=== PATIENT | female | born 1985 | race Caucasian/White ===

== ENCOUNTER 2018-07-25 08:21 | Outpatient (CLI) | payer BC ==
--- NOTE | 2018-07-25 11:05 | Ultrasound Report ---
RIGHT BREAST ULTRASOUND: 07/25/18 08:21:00 CLINICAL: 33 year-old with a right breast lump COMPARISON: None. FINDINGS: Ultrasound of the right breast was performed from 3 o'clock to 5 o'clock which includes the area where she feels a lump. A prominent rib corresponds to what she is feeling.No mass, cyst or shadowing. IMPRESSION: Negative targeted right breast ultrasound. BI-RADS 1 - - Negative RECOMMENDATION: Clinical followup and routine mammographic screening based on ACS guidelines.
== END 2018-07-25 08:22 | disposition home or self-care (01) ==
LOC: US 08:21
PROVIDERS: ATTEND Obstetrics & Gynecology
DX: N63.14 Unspecified lump in the right breast, lower inner quadrant (principal)

== ENCOUNTER 2021-07-23 17:06 | Emergency (ER) | payer MEDICAID, OTHER ==
--- NOTE | 2021-07-23 18:37 | Emergency Department Report ---
ED Neuro Deficit HPI - General Chief Complaint: Neuro Symptoms/Deficit Stated Complaint: L SIDE BODY NUMBNESS Time Seen by Provider: 07/23/21 18:25 Source: patient Mode of arrival: Ambulatory Limitations: No Limitations - History of Present Illness Initial Comments: Chief complaint: Left-sided numbness, fall, headache HPI: Is a 34-year-old female with history of open heart surgery age 18 due to pulmonary stenosis and likely VSD who presents with left-sided numbness for 4 days. Gradual onset. She feels cold high differences between both legs. She denies any weakness in arms or legs. She denies trouble with walking. She denies trouble with speech. She feels that she may be stressed since she is now's student and young mom. She fell in the bathroom. She struck her head on an unknown object in the back pain. No loss conscious. She did not have a headache prior to the fall. She has mild left frontal headache. Of impact. -: Gradual, days(s) (4 days) Location: left face, left arm, left leg, other (Left dorsal) History of same: No Severity: mild Quality: numb Improves With: none Worsens With: none Context: gradual onset Associated Symptoms: other (Fall today headache after trauma) - Related Data Home Medications: Home Medications Medication Instructions Recorded Confirmed Last Taken Ascorbic Acid [Vitamin C] 1,000 mg PO DAILY 12/29/16 12/29/16 Unknown Multivitamin Tab [Multiple Vitamin 1 each PO QDAY 12/29/16 12/29/16 Unknown TAB (Theragran)] Previous Rx's Medication Instructions Recorded Last Taken Type Cyclobenzaprine [Flexeril] 10 mg PO TID PRN #12 tablet 10/18/18 Unknown Rx Ibuprofen [Motrin] 600 mg PO Q8H PRN #12 tablet 10/18/18 Unknown Rx Allergies/Adverse Reactions: Allergies Allergy/AdvReac Type Severity Reaction Status Date / Time No Known Allergies Allergy Verified 12/29/16 04:06 ED Review of Systems ROS: Stated complaint: L SIDE BODY NUMBNESS Other details as noted in HPI Comment: All other systems reviewed and negative Constitutional: denies: chills, fever, malaise Respiratory: denies: cough, shortness of breath Cardiovascular: denies: chest pain Gastrointestinal: denies: abdominal pain, nausea, vomiting Neurological: headache, numbness. denies: paresthesias, confusion, abnormal gait, vertigo ED Past Medical Hx - Past Medical History Previous Medical History?: Yes Hx Congestive Heart Failure: No Hx Diabetes: No Hx Asthma: No Hx COPD: No Hx HIV: No Additional medical history: Pulmonary stenosis - Surgical History Past Surgical History?: Yes Hx Open Heart Surgery: Yes (1998) - Social History Smoking Status: Never Smoker Substance Use Type: Alcohol - Medications Home Medications: Home Medications Medication Instructions Recorded Confirmed Last Taken Type Ascorbic Acid [Vitamin C] 1,000 mg PO DAILY 12/29/16 12/29/16 Unknown History Multivitamin Tab [Multiple Vitamin 1 each PO QDAY 12/29/16 12/29/16 Unknown History TAB (Theragran)] Cyclobenzaprine [Flexeril] 10 mg PO TID PRN #12 tablet 10/18/18 Unknown Rx Ibuprofen [Motrin] 600 mg PO Q8H PRN #12 tablet 10/18/18 Unknown Rx ED Neuro Physical Exam - General Limitations: No Limitations General appearance: alert, in no apparent distress Suspected Stroke: No - Head Head exam: Present: atraumatic, normocephalic - Eye Eye exam: Present: normal appearance - ENT ENT exam: Present: mucous membranes moist - Neck Neck exam: Present: normal inspection - Respiratory Respiratory exam: Present: normal lung sounds bilaterally. Absent: respiratory distress, wheezes, rales, rhonchi, stridor - Cardiovascular Cardiovascular Exam: Present: regular rate, normal rhythm, normal heart sounds. Absent: systolic murmur, diastolic murmur, rubs, gallop - GI/Abdominal GI/Abdominal exam: Present: soft, normal bowel sounds. Absent: distended, tenderness, guarding, rebound - Extremities Exam Extremities exam: Present: normal inspection - Neurological Exam Neurological exam: Present: alert, oriented X3, CN II-XII intact, normal gait, other (On my observation patient has normal gait normal strength does withdraw to noxious stimuli on the left side) - NIHSS Assessment Interval: 24 hours post onset of symptoms +-20 minutes 1a. Level of Consciousness: alert/keenly responsive 1b. LOC Questions: answers both correctly 1c. LOC Commands: performs tasks correctly 2. Best Gaze: normal 3. Visual: no visual loss 4. Facial Palsy: normal symmetrical movement 5b. Motor Arm Right: no drift 5a. Motor Arm Left: no drift 6a. Motor Leg Left: no drift 6b. Motor Leg Right: no drift 7. Limb Ataxia: absent 8. Sensory: normal 9. Best Language: no aphasia 10. Dysarthria: normal 11. Extinction/Inattention: no abnormality Total Score: 0 Stroke Severity: No Stroke Symptoms - Psychiatric Psychiatric exam: Present: normal affect, normal mood - Skin Skin exam: Present: warm, dry, intact, normal color. Absent: rash ED Course Vital Signs 07/23/21 07/23/21 17:51 19:48 Temperature 98.9 F Pulse Rate 73 66 Respiratory 16 16 Rate Blood Pressure 100/47 Blood Pressure 95/53 [Left] O2 Sat by Pulse 100 100 Oximetry - Radiology Data Radiology results: report reviewed Patient Name: NORMA RUSH Gender: Female Date of : 1985 Referring Provider: AAYUSH JOSEPH Organization: [facility] Accession Number: [id number] Requested Date: July 23, 2021 18:31 Report Status: Final Requested Procedure: 1 Procedure Description: CT head/brain wo con Modality: CT Findings Reporting MD: Ivan Loza Dictation Time: July 23, 2021 18:46 [employer] Logistics Analyst: Not available Laboratory Sampler Date: CT head/brain wo con INDICATION: Left-sided numbness. TECHNIQUE: Routine CT head without contrast. All CT scans at this location are performed using CT dose reduction for ALARA by means of automated exposure control. COMPARISON: None. FINDINGS: BRAIN / INTRACRANIAL CONTENTS: No acute hemorrhage, mass effect, midline shift, or hydrocephalus. No appreciable acute large territorial or lacunar infarct. No chronic infarct or focal atrophy. Normal brain volume and ventricular/sulcal size for age. ORBITS: No significant abnormality of visualized orbits. SINUSES / MASTOIDS: There is mild mucosal thickening in the bilateral maxillary sinuses and sphenoid sinus. ADDITIONAL FINDINGS: None. IMPRESSION: 1. No acute intracranial abnormality. Signer Name: Ivan Loza MD Signed: 07/23/2021 6:46 PM Workstation Name: [id number] - Medical Decision Making This is a 36-year-old female who presents with left-sided facial torso and arm leg numbness. She did withdrawal from stimuli on the left side. He has a normal neurological exam. Differential diagnosis needs include no evidence acute or subacute CVA on CT head. No evidence of intracranial hemorrhage or large space-occupying lesion in the intracranial region. Differential diagnosis includes multiple sclerosis, intracranial mass, conve rsion disorder, atypical migraine, stress reaction. Strongly urged evaluation by an internal medicine physician and neurologist. I referred her to both an dowel pin worker and neurologist. Mild closed head injury unrelated to patient's numbness. Critical care attestation.: If time is entered above; I have spent that time in minutes in the direct care of this critically ill patient, excluding procedure time. ED Disposition Clinical Impression: Numbness, Closed head injury Disposition: 01 HOME / SELF CARE / HOMELESS Is pt being admited?: No Does the pt Need Aspirin: No Condition: Stable Instructions: Paresthesia, Head Injury, Adult, [id number] Referrals: LYNDA ARAGON MD [Staff Physician] - 3-5 Days DAINA WILCOX MD [Referring] - 3-5 Days
[2021-07-23 19:49] VITALS: BP 95/53
--- NOTE | 2021-07-23 19:50 | Cat Scan Report ---
CT head/brain wo con INDICATION: Left-sided numbness. TECHNIQUE: Routine CT head without contrast. All CT scans at this location are performed using CT dos e reduction for ALARA by means of automated exposure control. COMPARISON: None. FINDINGS: BRAIN / INTRACRANIAL CONTENTS: No acute hemorrhage, mass effect, midline shift, or hydrocephalus. No appreciable acute large territorial or lacunar infarct. No chronic infarct or focal atrophy. Normal b rain volume and ventricular/sulcal size for age. ORBITS: No significant abnormality of visualized orbits. SINUSES / MASTOIDS: There is mild mucosal thickening in the bilateral maxillary sinuses and sphenoid sinus. ADDITIONAL FINDINGS: None. IMPRESSION: 1. No acute intracranial abnormality. Signer Name: Ivan Loza MD Signed: 07/23/2021 7:46 PM Workstation Name: [id number]
== END 2021-07-23 20:40 | disposition home or self-care (01) ==
LOC: ED 17:06
DX: S09.90XA Unspecified injury of head, initial encounter (principal); R20.0 Anesthesia of skin; Z98.890 Other specified postprocedural states; Z72.89 Other problems related to lifestyle; X58.XXXA Exposure to other specified factors, initial encounter; Y93.89 Activity, other specified; Y92.89 Other specified places as the place of occurrence of the external cause; Y99.8 Other external cause status
CPT/HCPCS: 70450; 99283